=== PATIENT | male | born 1960 | race Caucasian/White ===

== ENCOUNTER 2020-05-30 05:55 | Day surgery (SDC) | payer MEDICAID, SELFPAY ==
[~2020-05-30] VITALS: Ht 177.8 cm; Wt 106.6 kg
[2020-05-30] MEDS ORDERED: HYDROmorphone 1 MG INJ. 1 MG/ML AMPUL IVP PRN ×2 (08:30)
[2020-05-30] MEDS ORDERED: MIDAZOLAM HCL 2 MG/2 ML VIAL (VERSED) IVP PRN (08:30)
[2020-05-30] MEDS ORDERED: LR 1,000 ML IV SCH (08:30)
[2020-05-30] MEDS ORDERED: hydrALAZINE HCL 20 MG/ML VIAL IVP PRN (08:30)
[2020-05-30] MEDS ORDERED: MEPERIDINE HCL/PF 25 MG/ML DISP.SYRIN IVP PRN (08:30)
[2020-05-30] MEDS ORDERED: ONDANSETRON HCL 4 MG/2 ML VIAL IVP PRN (08:30)
[2020-05-30 10:15] VITALS: BP_SYST 134
[2020-05-31] MEDS ORDERED: MAGN296S30 PO (09:27)
== END 2020-05-30 13:40 | disposition home or self-care (01) ==
LOC: SMU 05:55 → SDS 05:55
PROVIDERS: ATTEND Otolaryngology
DX: J32.9 Chronic sinusitis, unspecified (principal); J34.89 Other specified disorders of nose and nasal sinuses; J34.2 Deviated nasal septum; I10 Essential (primary) hypertension; F41.9 Anxiety disorder, unspecified; E66.9 Obesity, unspecified; J30.1 Allergic rhinitis due to pollen; R09.82 Postnasal drip; K21.9 Gastro-esophageal reflux disease without esophagitis; Z20.828 Contact with and (suspected) exposure to other viral communicable diseases; F17.200 Nicotine dependence, unspecified, uncomplicated; Z79.899 Other long term (current) drug therapy
CPT/HCPCS: 30140; 30520; 31255; 31256; 88305; 88311; U0003

== ENCOUNTER 2020-05-31 08:26 | Emergency (ER) | payer MEDICAID, SELFPAY ==
[~2020-05-31] VITALS: Ht 177.8 cm; Wt 106.6 kg
[2020-05-31 08:30] VITALS: BP_SYST 151
--- NOTE | 2020-05-31 08:38 | NUR ---
Patient to ER bed 7 to gown for evaluation. Side rails up. Report given to Kwabena ALEXANDRA.
--- NOTE | 2020-05-31 08:40 | NUR ---
Pt recently had sinus surgery states he is now having dysuria. Pt was educated about need to ambulate after anesthesia, stated he was unaware of common side effects associated with anesthia. Pt resting in [facility] at this time
--- NOTE | 2020-05-31 08:42 | NUR ---
ER at bedside examining patient.
[2020-05-31] MEDS ORDERED: ALPRAZolam 0.25 MG TABLET ONE (08:51)
[2020-05-31] MEDS ORDERED: ALPRAZolam 0.25 MG TABLET PO ONE (09:15)
[2020-05-31 09:21] LABS: BASOPHILS % (AUTO) 0.3 % (0.0-2.0); EOSINOPHILS % (AUTO) 0.3 % (0.0-4.0); HEMOGLOBIN 14.2 g/dL (14.0-18.0); LYMPHOCYTES # (AUTO) 2.5 K/uL (1.0-5.5); LYMPHOCYTES % (AUTO) 18.4 % (20.5-51.5); MEAN CORPUSCULAR HEMOGLOBIN 31 pg (27-31); MEAN CORPUSCULAR HGB CONC 34 % (32-36); MEAN CORPUSCULAR VOLUME 92 fL (79.0-98.0); MONOCYTES # (AUTO) 1.3 K/uL (0.0-1.0); MONOCYTES % (AUTO) 9.7 % (1.7-9.3); NEUTROPHILS # (AUTO) 9.6 K/uL (1.8-7.7); NEUTROPHILS % (AUTO) 71.3 % (40.0-70.0); PLATELET COUNT (AUTO) 216 K/uL (130-430); RED BLOOD CELL COUNT(AUTO) 4.55 MIL/uL (4.2-6.2); RED CELL DISTRIBUTION WIDTH 13.7 % (9.0-15.0); WHITE BLOOD COUNT (AUTO) 13.5 K/uL (4.8-10.8)
[2020-05-31] MEDS ORDERED: MAGN296S30 PO (09:27)
[2020-05-31 09:47] LABS: CALCIUM 8.9 mg/dL (8.4-11.0); CREATININE 0.97 mg/dL (0.55-1.30); POTASSIUM 3.8 mmol/L (3.5-5.1)
[2020-05-31 09:52] LABS: ALBUMIN 3.7 g/dL (3.4-4.8); TOTAL BILIRUBIN 0.5 mg/dL (0.0-1.0)
[2020-05-31 09:54] LABS: PROTHROMBIN TIME 10.7 SECS (9.5-12.5)
--- NOTE | 2020-05-31 10:25 | NUR ---
Pt [place] leaking around insertion site, assessed, spoke with pt and ordered DC of [place]
[2020-05-31 10:44] VITALS: BP_SYST 151
--- NOTE | 2020-05-31 10:46 | NUR ---
Patient given written and verbal discharge instructions and verbalizes understanding. ER MD discussed with patient the results and treatment provided. Patient in stable condition. ID arm band removed. Rx of Magnesium Citrate given. Patient educated on pain management and to follow up with PMD. Pain Scale 0/10. Opportunity for questions provided and answered. Medication side effect fact sheet provided.
[2020-05-31 11:44] LABS: BILIRUBIN,URINE NEGATIVE (NEGATIVE); CLARITY/URINE CLEAR (CLEAR); COLOR,URINE YELLOW (YELLOW); GLUCOSE,URINE NEGATIVE (NEGATIVE); KETONES,URINE NEGATIVE (NEGATIVE); LEUKOCYTE ESTERASE ,URINE NEGATIVE (NEGATIVE); NITRITE, URINE NEGATIVE (NEGATIVE); PROTEIN URINE NEGATIVE (NEGATIVE); UROBILINOGEN,URINE 0.2 (0.2-1.0)
[2020-05-31 11:55] LABS: BLOOD, URINE TRACE (NEGATIVE)
[2020-05-31 12:39] LABS: BACTERIA,URINE None Seen /HPF (None Seen); WBC,URINE NONE SEEN /HPF (0-3)
== END 2020-05-31 10:44 | disposition home or self-care (01) ==
LOC: SED 08:26
DX: R33.9 Retention of urine, unspecified (principal); Z88.1 Allergy status to other antibiotic agents; Z91.040 Latex allergy status
CPT/HCPCS: 36415; 76376; 80053; 81000-TC; 82150-TC; 83605; 83690-TC; 85025; 85610-TC; 85730-TC; 99284

== ENCOUNTER 2022-01-08 09:13 | Day surgery (SDC) | payer MEDICAID ==
[~2022-01-08] VITALS: Ht 180.3 cm; Wt 108.9 kg
[~2022-01-08 09:13] MED LIST: MAGN296S8 PO
[2022-01-08 10:04] LABS: BASOPHILS % (AUTO) 0.5 % (0.0-2.0); EOSINOPHILS # (AUTO) 0.3 K/uL (0.0-0.4); EOSINOPHILS % (AUTO) 3.7 % (0.0-4.0); HEMATOCRIT 43.3 % (36-54); LYMPHOCYTES # (AUTO) 2.6 K/uL (1.0-5.5); LYMPHOCYTES % (AUTO) 37.5 % (20.5-51.5); MEAN CORPUSCULAR VOLUME 91 fL (79.0-98.0); MONOCYTES # (AUTO) 0.7 K/uL (0.0-1.0); MONOCYTES % (AUTO) 10.8 % (1.7-9.3); NEUTROPHILS # (AUTO) 3.3 K/uL (1.8-7.7); NEUTROPHILS % (AUTO) 47.5 % (40.0-70.0); PLATELET COUNT (AUTO) 245 K/uL (130-430); RED BLOOD CELL COUNT(AUTO) 4.74 MIL/uL (4.2-6.2); RED CELL DISTRIBUTION WIDTH 13.7 % (9.0-15.0); WHITE BLOOD COUNT (AUTO) 6.9 K/uL (4.8-10.8)
[2022-01-08 10:26] LABS: CALCIUM 9.3 mg/dL (8.4-11.0); CREATININE 1.08 mg/dL (0.55-1.30); POTASSIUM 4.4 mmol/L (3.5-5.1)
[2022-01-08 10:43] LABS: ALBUMIN 3.6 g/dL (3.4-4.8); TOTAL BILIRUBIN 0.6 mg/dL (0.0-1.0)
[2022-01-08] MEDS ORDERED: ACETAMINOPHEN I.V. 1000 MG 0 ML IV ONE (12:08)
[2022-01-08] MEDS ORDERED: ACETAMINOPHEN I.V. 1000 MG 100 ML IV ONE (12:27)
[2022-01-08] MEDS ORDERED: DESFLURANE 15 MIN GAS INH ONE (12:35)
[2022-01-08] MEDS ORDERED: PROPOFOL 200MG/ 20ML VIAL (DIPRIVAN) IV ONE (12:35)
[2022-01-08] MEDS ORDERED: LR 1,000 ML IV.SOLN IV ONE (12:35)
[2022-01-08] MEDS ORDERED: DEXAMETHASONE SOD PHOSPHATE 4 MG/ML VIAL ONE (12:35)
[2022-01-08] MEDS ORDERED: WATER FOR IRRIGATION,STERILE 1,000 ML IRRIG.SOLN IR ONE (12:35)
[2022-01-08] MEDS ORDERED: NS 1000 ML IV.SOLN IV ONE (12:35)
[2022-01-08] MEDS ORDERED: fentaNYL CITRATE 250 MCG/5 ML AMP ONE (12:35)
[2022-01-08] MEDS ORDERED: LIDOCAINE 2%, 20 ML MDV ONE (12:35)
[2022-01-08] MEDS ORDERED: NS IRRIG SOLN 1000 ML IR ONE (12:35)
[2022-01-08] MEDS ORDERED: MIDAZOLAM HCL 5 MG/5 ML VIAL ONE (12:35)
[2022-01-08] MEDS ORDERED: ROCURONIUM BROMIDE 10 MG/ML (ZEMURON) ONE (12:35)
[2022-01-08] MEDS ORDERED: SUGAMMADEX SODIUM 200 MG/2 ML VIAL IV ONE (12:35)
[2022-01-08] MEDS ORDERED: ONDANSETRON HCL 4 MG/2 ML VIAL ONE (12:35)
[2022-01-08] MEDS ORDERED: METOCLOPRAMIDE HCL 10 MG/2 ML VIAL IVP PRN (13:15)
[2022-01-08] MEDS ORDERED: MEPERIDINE HCL/PF 25 MG/ML DISP.SYRIN IVP PRN (13:15)
[2022-01-08] MEDS ORDERED: LABETALOL 100 MG/ 20ML VIAL IVP PRN (13:15)
[2022-01-08] MEDS ORDERED: hydrALAZINE HCL 20 MG/ML VIAL IVP PRN (13:15)
[2022-01-08] MEDS ORDERED: HYDROmorphone 1 MG/ML INJ. CARTRIDGE IVP PRN ×2 (13:15)
[2022-01-08] MEDS ORDERED: LR 1,000 ML IV SCH (13:15)
[2022-01-08] MEDS ORDERED: MIDAZOLAM HCL 2 MG/2 ML VIAL (VERSED) IVP PRN (13:15)
[2022-01-08 18:04] VITALS: BP_SYST 124
== END 2022-01-08 17:00 | disposition home or self-care (01) ==
LOC: SMU 09:13 → SOR 09:13
PROVIDERS: ATTEND Otolaryngology
DX: J32.4 Chronic pansinusitis (principal); D38.5 Neoplasm of uncertain behavior of other respiratory organs; J34.3 Hypertrophy of nasal turbinates; J30.1 Allergic rhinitis due to pollen; I10 Essential (primary) hypertension; K21.9 Gastro-esophageal reflux disease without esophagitis; J44.9 Chronic obstructive pulmonary disease, unspecified; Z88.0 Allergy status to penicillin; Z91.040 Latex allergy status; Z79.899 Other long term (current) drug therapy
CPT/HCPCS: 36415 ×2; 31298; 30140; 31255; 31256; 80053; 85025; 87070; 87075; 87186; 87101; 88305; 87426; U0003; J3490; J1100; J2001; J2250; J2405; J2704; J3010; J7120; J7030; A4649; C1726; J0131; 88311